=== PATIENT | female | born 1975 | race African-American/Black ===

== ENCOUNTER 2021-12-04 22:01 | Inpatient (IN) | payer OTHER ==
[2021-12-04] MEDS ORDERED: niCARdipine 25 MG/10 ML VIAL ONE (22:20)
[2021-12-04] MEDS ORDERED: Dextrose 5% in Water 1,000 ML IV PRN (23:17)
[2021-12-04] MEDS ORDERED: Acetaminophen 325 MG TAB PO PRN (23:17)
[2021-12-04] MEDS ORDERED: Ondansetron PF 4 MG/2 ML Vial IVP PRN (23:17)
[2021-12-04] MEDS ORDERED: Dextrose 50% Abboject 50 ML SYRINGE SLOW IVP PRN (23:17)
[2021-12-04] MEDS ORDERED: Calcium Carbonate 500 MG ChewTAB PO PRN (23:17)
[2021-12-04] MEDS ORDERED: Guaifenesin DM 100-10/5 ML UDCUP PO PRN (23:17)
[2021-12-04] MEDS ORDERED: Senokot S 8.6-50 MG TAB PO PRN (23:17)
[2021-12-04 23:45] LABS: CKMB 7.3 ng/mL (0-6.6)
[2021-12-04] MEDS ORDERED: Metoprolol Tartrate 5 MG/5 ML VIAL IVP SCH (23:45)
[2021-12-05 00:09] VITALS: BMI 32.1
[2021-12-05 01:22] LABS: INR-International Normal Ratio 1.1; PTT 26.2 sec (22.0-33.0); Prothrombin Time 12.3 sec (9.5-12.1)
[2021-12-05] MEDS: niCARdipine 25 MG in Sodium Chloride 0.9% 250 ML 250 ML IVPB SCH ×3 (01:30→13:24)
[2021-12-05] MEDS ORDERED: Enoxaparin Sodium 80 MG/0.8 ML SYRINGE SC SCH (02:30)
[2021-12-05] MEDS: HYDROcodone/Acetaminophen 5/325 mg Tablet PO PRN (02:43)
[2021-12-05] MEDS ORDERED: Promethazine 25 MG TAB PO SCH (03:15)
[2021-12-05 05:11] LABS: #Monocytes 0.6 10x3/uL (0.0-1.1); #Neutrophils 9.3 10x3/uL (1.5-8.4); %Basophils 0.2 % (0.0-2.0); %Lymphocytes 10.5 % (18.0-47.0); %Monocytes 5.1 % (0.0-10.0); %Neutrophils 83.7 % (40.0-75.0); Hemoglobin 10.5 g/dL (12.0-15.5); Mean Corpuscular HGB CONC 30.2 g/dL (32.0-36.0); Mean Corpuscular Hemoglobin 20.1 pg (27.0-33.0); Mean Corpuscular Volume 66.5 fl (81.6-98.3); Mean Platelet Volume 9.9 fl (7.4-10.4); Platelet Count 421 10x3/uL (150-450); RBC Distribution Width 17.1 % (11.5-14.5); Red Blood Cell (RBC) Count 5.23 10x6/uL (3.90-5.03); White Blood Cell (WBC) Count 11.1 10x3/uL (3.5-10.5)
[2021-12-05 05:20] LABS: INR-International Normal Ratio 1.2; PTT 28.2 sec (22.0-33.0); Prothrombin Time 12.6 sec (9.5-12.1)
[2021-12-05 05:27] LABS: Microcytosis MODERATE=15-30 cells (100X) (0-5/hpf)
[2021-12-05 05:28] LABS: ALT (SGPT) 11 U/L (8-55); AST (SGOT) 25 U/L (5-34); Alkaline Phosphatase 127 U/L (40-110); Anion Gap 18 mmol/L (10-20); BUN (Urea Nitrogen) 16 mg/dL (7.0-18.7); Bilirubin, Total 0.9 mg/dL (0.2-1.2); Calc. Creatinine Clearance 99 mL/min (70-130); Calcium 9.2 mg/dL (7.8-10.44); Carbon Dioxide 24 mmol/L (22-29); Cardiac Risk 3.1 (Less than 4.5); Chloride 101 mmol/L (98-107); Cholesterol 169 mg/dl (< 200 Desired); Globulin 5.6 g/dL (2.4-3.5); Glucose 181 mg/dL (70-105); HDL Cholesterol 55 mg/dL (>60 Neg Risk); Iron 26 ug/dL (50-170); Iron Binding Capacity, Total 370 mcg/dL (265-497); LDL Cholesterol, Calculated 100 mg/dL; Magnesium 1.8 mg/dL (1.6-2.6); Platelet Morphology Comment Appears Adequate; Potassium 3.3 mmol/L (3.5-5.1); Protein, Total 8.6 g/dL (6.0-8.3); Sodium 140 mmol/L (136-145); Triglycerides 69 mg/dL (Less than 150)
[2021-12-05 05:44] LABS: Ferritin 85.6 ng/mL (10-291); Thyroid Stimulating Hormone 0.7231 uIU/mL (0.35-4.94)
[2021-12-05] MEDS ORDERED: Potassium Chloride 20 MEQ TAB PO SCH (06:30)
[2021-12-05] MEDS ORDERED: Carvedilol 6.25 MG TAB PO SCH (08:00)
[2021-12-05] MEDS ORDERED: Lisinopril 20 MG TAB PO SCH (09:00)
[2021-12-05] MEDS ORDERED: Hydrochlorothiazide 25 MG TAB PO SCH (09:00)
[2021-12-05] MEDS ORDERED: Gabapentin 100 MG CAP PO SCH (09:00)
[2021-12-05] MEDS ORDERED: Carvedilol 12.5 MG TAB PO SCH ×2 (10:00→17:00)
[2021-12-05 10:03] LABS: CKMB 6.1 ng/mL (0-6.6)
[2021-12-05] MEDS: Lantus 1000 UNITS/10 ML VIAL SC SCH (10:36)
[2021-12-05] MEDS: Enoxaparin Sodium 80 MG/0.8 ML SYRINGE SC SCH ×2 (10:37→20:35)
[2021-12-05] MEDS: Gabapentin 300 MG CAP PO SCH ×3 (10:37→20:37)
[2021-12-05] MEDS: Lidocaine 5% Patch TD SCH (11:13)
[2021-12-05 13:04] LABS: Hemoglobin A1c 9.2 % (4.0-6.0)
[2021-12-05] MEDS: Atorvastatin Calcium 40 MG TAB PO SCH (20:35)
[2021-12-05] MEDS: TICAGRELOR 90 MG TABLET PO SCH (20:36)
[2021-12-05] MEDS: Promethazine 25 MG TAB PO PRN (20:38)
[2021-12-05] MEDS: Transdermal Patch Removal TOP SCH (20:42)
[2021-12-05] MEDS: tiZANidine HCl 4 MG TAB PO SCH (20:50)
[2021-12-05] MEDS ORDERED: Atorvastatin Calcium 20 MG TAB PO SCH (21:00)
[2021-12-06] MEDS: niCARdipine 25 MG in Sodium Chloride 0.9% 250 ML 250 ML IVPB SCH ×2 (04:33→17:28)
[2021-12-06] MEDS: HumaLOG 300 UNITS/3 ML VIAL SC PRN ×3 (06:13→17:41)
[2021-12-06] MEDS: Spironolactone 25 MG TAB PO SCH ×3 (08:44→10:22)
[2021-12-06] MEDS: Lisinopril 20 MG TAB PO SCH (08:46)
[2021-12-06] MEDS: Gabapentin 300 MG CAP PO SCH ×3 (08:46→20:08)
[2021-12-06] MEDS: Ferrous Sulfate 325 MG TAB PO SCH (08:48)
[2021-12-06] MEDS: Enoxaparin Sodium 80 MG/0.8 ML SYRINGE SC SCH ×2 (08:48→20:09)
[2021-12-06] MEDS: Carvedilol 12.5 MG TAB PO SCH ×2 (08:48→17:27)
[2021-12-06] MEDS ORDERED: NALOXONE HCL SL SCH (09:00)
[2021-12-06] MEDS ORDERED: BUPRENORPHINE HCL SL SCH (09:00)
[2021-12-06] MEDS ORDERED: Lisinopril 20 MG TAB PO SCH (09:00)
[2021-12-06] MEDS ORDERED: [UNRECOGNIZED DRUG - OTHER] SL SCH (09:00)
[2021-12-06] MEDS: Promethazine 25 MG TAB PO PRN ×2 (09:13→20:15)
[2021-12-06] MEDS: tiZANidine HCl 4 MG TAB PO SCH ×4 (09:14→20:10)
[2021-12-06] MEDS: HYDROcodone/Acetaminophen 5/325 mg Tablet PO PRN ×2 (09:26→20:14)
[2021-12-06] MEDS: TICAGRELOR 90 MG TABLET PO SCH ×2 (09:30→20:09)
[2021-12-06 09:40] LABS: Hemoglobin 11.5 g/dL (12.0-15.5); Mean Corpuscular HGB CONC 29.7 g/dL (32.0-36.0); Mean Corpuscular Volume 67.2 fl (81.6-98.3); Mean Platelet Volume 9.4 fl (7.4-10.4); Platelet Count 446 10x3/uL (150-450); RBC Distribution Width 18.1 % (11.5-14.5); Red Blood Cell (RBC) Count 5.76 10x6/uL (3.90-5.03); White Blood Cell (WBC) Count 5.1 10x3/uL (3.5-10.5)
[2021-12-06 09:53] LABS: Anion Gap 13 mmol/L (10-20); BUN (Urea Nitrogen) 17 mg/dL (7.0-18.7); Calc. Creatinine Clearance 98 mL/min (70-130); Carbon Dioxide 26 mmol/L (22-29); Chloride 98 mmol/L (98-107); Glucose 179 mg/dL (70-105); Magnesium 1.7 mg/dL (1.6-2.6); Potassium 3.6 mmol/L (3.5-5.1); Sodium 133 mmol/L (136-145)
[2021-12-06] MEDS: Lantus 1000 UNITS/10 ML VIAL SC SCH (10:39)
[2021-12-06] MEDS: Lidocaine 5% Patch TD SCH ×2 (10:51→10:55)
[2021-12-06 12:17] VITALS: TEMP 98.7
[2021-12-06] MEDS ORDERED: Magnesium 2 GM/50 ML(in water) 2 GM in Premix Bag 1 BAG IVPB SCH ×2 (12:45→18:00)
[2021-12-06 15:42] LABS: Bilirubin Neg (Negative); Blood, Urine Negative (Negative); Clarity Clear (Clear); Glucose, Urine (Dipstick) Normal (Negative); Ketone, Urine Negative (Negative); Leukocyte Negative (Negative); Nitrite Negative (Negative); Protein, Urine (Dipstick) 100 mg/dl (Neg-Trace); Urobilinogen Normal mg/dL (Less than 2)
[2021-12-06 15:50] LABS: Urine Culture Reflex No No
[2021-12-06 16:03] LABS: Bacteria/HPF 2+ HPF (None Seen); RBC/HPF 0-3 HPF (0-3); WBC/HPF 0-3 HPF (0-3)
[2021-12-06] MEDS: Atorvastatin Calcium 40 MG TAB PO SCH (20:09)
[2021-12-06] MEDS: Transdermal Patch Removal TOP SCH (20:10)
[2021-12-07] MEDS: niCARdipine 25 MG in Sodium Chloride 0.9% 250 ML 250 ML IVPB SCH (00:07)
[2021-12-07 04:49] LABS: Anion Gap 14 mmol/L (10-20); BUN (Urea Nitrogen) 23 mg/dL (7.0-18.7); Calc. Creatinine Clearance 76 mL/min (70-130); Calcium 8.5 mg/dL (7.8-10.44); Carbon Dioxide 25 mmol/L (22-29); Chloride 98 mmol/L (98-107); Glucose 167 mg/dL (70-105); Potassium 3.5 mmol/L (3.5-5.1); Sodium 133 mmol/L (136-145)
[2021-12-07] MEDS: Enoxaparin Sodium 80 MG/0.8 ML SYRINGE SC SCH (08:01)
[2021-12-07] MEDS: Lantus 1000 UNITS/10 ML VIAL SC SCH (08:01)
[2021-12-07] MEDS: Promethazine 25 MG TAB PO PRN ×2 (08:02→20:48)
[2021-12-07] MEDS: TICAGRELOR 90 MG TABLET PO SCH ×2 (08:02→20:47)
[2021-12-07] MEDS: tiZANidine HCl 4 MG TAB PO SCH ×4 (08:02→21:16)
[2021-12-07] MEDS: Gabapentin 300 MG CAP PO SCH ×3 (08:02→20:46)
[2021-12-07 08:03] VITALS: BP 178/99
[2021-12-07] MEDS: Spironolactone 25 MG TAB PO SCH (08:03)
[2021-12-07] MEDS: Lisinopril 20 MG TAB PO SCH (08:03)
[2021-12-07] MEDS: Carvedilol 12.5 MG TAB PO SCH ×2 (08:03→17:01)
[2021-12-07] MEDS: Ferrous Sulfate 325 MG TAB PO SCH (08:03)
[2021-12-07] MEDS: HYDROcodone/Acetaminophen 5/325 mg Tablet PO PRN ×3 (08:17→20:47)
[2021-12-07] MEDS ORDERED: Potassium Chloride 20 MEQ TAB PO SCH (11:00)
[2021-12-07] MEDS: Lidocaine 5% Patch TD SCH (11:17)
[2021-12-07] MEDS: HumaLOG 300 UNITS/3 ML VIAL SC PRN ×2 (12:26→17:02)
[2021-12-07] MEDS: Atorvastatin Calcium 40 MG TAB PO SCH (20:48)
[2021-12-08] MEDS: HYDROcodone/Acetaminophen 5/325 mg Tablet PO PRN ×3 (02:07→12:25)
[2021-12-08] MEDS: Transdermal Patch Removal TOP SCH ×2 (02:07→22:56)
[2021-12-08] MEDS ORDERED: Sodium Chloride 0.9% 250 ML 250 ML ONE (03:02)
[2021-12-08] MEDS ORDERED: niCARdipine 25 MG/10 ML VIAL ONE (03:02)
[2021-12-08 04:31] LABS: Hemoglobin 11.4 g/dL (12.0-15.5); Mean Corpuscular HGB CONC 30.3 g/dL (32.0-36.0); Mean Corpuscular Hemoglobin 20.1 pg (27.0-33.0); Mean Corpuscular Volume 66.4 fl (81.6-98.3); Mean Platelet Volume 9.5 fl (7.4-10.4); Platelet Count 352 10x3/uL (150-450); RBC Distribution Width 17.8 % (11.5-14.5); Red Blood Cell (RBC) Count 5.66 10x6/uL (3.90-5.03); White Blood Cell (WBC) Count 4.7 10x3/uL (3.5-10.5)
[2021-12-08] MEDS ORDERED: Morphine 2 MG/ML VIAL SLOW IVP SCH ×2 (05:30→21:15)
[2021-12-08] MEDS: niCARdipine 25 MG in Sodium Chloride 0.9% 250 ML 250 ML IVPB SCH ×3 (06:20→18:24)
[2021-12-08] MEDS: Gabapentin 300 MG CAP PO SCH ×3 (07:33→21:04)
[2021-12-08] MEDS: Carvedilol 12.5 MG TAB PO SCH ×2 (07:33→18:25)
[2021-12-08] MEDS: Lisinopril 20 MG TAB PO SCH (07:33)
[2021-12-08] MEDS: Promethazine 25 MG TAB PO PRN (07:34)
[2021-12-08] MEDS: Ferrous Sulfate 325 MG TAB PO SCH (07:34)
[2021-12-08] MEDS: tiZANidine HCl 4 MG TAB PO SCH ×4 (07:34→21:09)
[2021-12-08] MEDS: TICAGRELOR 90 MG TABLET PO SCH ×2 (07:34→21:59)
[2021-12-08] MEDS: Spironolactone 25 MG TAB PO SCH (07:34)
[2021-12-08] MEDS: Lantus 1000 UNITS/10 ML VIAL SC SCH (07:35)
[2021-12-08 08:49] LABS: Anion Gap 12 mmol/L (10-20); BUN (Urea Nitrogen) 22 mg/dL (7.0-18.7); Calc. Creatinine Clearance 78 mL/min (70-130); Calcium 8.5 mg/dL (7.8-10.44); Carbon Dioxide 26 mmol/L (22-29); Chloride 100 mmol/L (98-107); Glucose 237 mg/dL (70-105); Potassium 3.5 mmol/L (3.5-5.1); Sodium 134 mmol/L (136-145)
[2021-12-08] MEDS ORDERED: Heparin 10,000 UNITS/ 10 ML VIAL ONE ×2 (09:45→15:57)
[2021-12-08] MEDS ORDERED: Nitroglycerin 50 MG/250 ML BOT 0 ML ONE ×2 (09:45→15:57)
[2021-12-08] MEDS ORDERED: Adenosine 6 MG/2 ML VIAL ONE ×2 (09:45→15:57)
[2021-12-08] MEDS ORDERED: Potassium Chloride 20 MEQ TAB PO SCH (12:30)
[2021-12-08] MEDS ORDERED: Iopamidol 300 61% 100 ML VIAL FS ONE (14:07)
[2021-12-08] MEDS ORDERED: Iopamidol 300 61% 50 ML VIAL FS ONE (14:07)
[2021-12-08] MEDS: Lidocaine 5% Patch TD SCH (15:25)
[2021-12-08] MEDS ORDERED: Lidocaine 1% (PF) 30 ML VIAL ONE (15:57)
[2021-12-08] MEDS ORDERED: Fentanyl 100 MCG/2 ML VIAL ONE (16:45)
[2021-12-08] MEDS ORDERED: Midazolam HCl 2 mg/2 ml Vial ONE (16:46)
[2021-12-08] MEDS: HumaLOG 300 UNITS/3 ML VIAL SC PRN (18:29)
[2021-12-08] MEDS ORDERED: Enoxaparin Sodium 80 MG/0.8 ML SYRINGE SC SCH (21:00)
[2021-12-08] MEDS: hydrOXYzine 25 MG TAB PO PRN (21:03)
[2021-12-08] MEDS: Atorvastatin Calcium 40 MG TAB PO SCH (21:05)
[2021-12-09] MEDS: HumaLOG 300 UNITS/3 ML VIAL SC PRN (01:12)
[2021-12-09] MEDS: HYDROcodone/Acetaminophen 5/325 mg Tablet PO PRN ×2 (03:48→08:05)
[2021-12-09 04:29] LABS: Hemoglobin 10.7 g/dL (12.0-15.5); Mean Corpuscular HGB CONC 30.1 g/dL (32.0-36.0); Mean Corpuscular Hemoglobin 20.2 pg (27.0-33.0); Mean Corpuscular Volume 67.2 fl (81.6-98.3); Mean Platelet Volume 9.8 fl (7.4-10.4); Platelet Count 298 10x3/uL (150-450); RBC Distribution Width 17.2 % (11.5-14.5); White Blood Cell (WBC) Count 7.4 10x3/uL (3.5-10.5)
[2021-12-09 04:39] LABS: Anion Gap 13 mmol/L (10-20); BUN (Urea Nitrogen) 16 mg/dL (7.0-18.7); Calc. Creatinine Clearance 93 mL/min (70-130); Calcium 8.7 mg/dL (7.8-10.44); Carbon Dioxide 23 mmol/L (22-29); Chloride 106 mmol/L (98-107); Glucose 203 mg/dL (70-105); Potassium 4.1 mmol/L (3.5-5.1); Sodium 138 mmol/L (136-145)
[2021-12-09] MEDS: Lantus 1000 UNITS/10 ML VIAL SC SCH (07:55)
[2021-12-09] MEDS: Carvedilol 12.5 MG TAB PO SCH (08:04)
[2021-12-09] MEDS: TICAGRELOR 90 MG TABLET PO SCH (08:04)
[2021-12-09] MEDS: Lisinopril 20 MG TAB PO SCH (08:04)
[2021-12-09] MEDS: Gabapentin 300 MG CAP PO SCH ×2 (08:04→14:01)
[2021-12-09] MEDS: tiZANidine HCl 4 MG TAB PO SCH ×2 (08:04→12:34)
[2021-12-09] MEDS: Spironolactone 25 MG TAB PO SCH (08:05)
[2021-12-09] MEDS: Ferrous Sulfate 325 MG TAB PO SCH (08:05)
[2021-12-09] MEDS: hydrOXYzine 25 MG TAB PO PRN (08:06)
[2021-12-09] MEDS: Lidocaine 5% Patch TD SCH (08:07)
[2021-12-09] MEDS: niCARdipine 25 MG in Sodium Chloride 0.9% 250 ML 250 ML IVPB SCH (12:38)
[2021-12-09] MEDS ORDERED: Amlodipine 10 MG TAB PO SCH (14:00)
[2021-12-09] MEDS ORDERED: Lisinopril 20 MG TAB PO SCH (21:00)
[2021-12-10] MEDS ORDERED: Amlodipine 10 MG TAB PO SCH (09:00)
[2021-12-12 21:36] LABS: Metanephrine,Plasma 148.3 pg/mL (0.0-88.0); Normetanephrine,Pl 544.8 pg/mL (0.0-218.9)
== END 2021-12-09 15:58 | disposition home or self-care (01) | DRG 246 ==
LOC: CSHERS 22:01 → CSHIMCU 23:48
PROVIDERS: ADMIT Student in an Organized Health Care Education/Training Program; ATTEND Internal Medicine
PROC: 027135Z Dilation of Coronary Artery, Two Arteries with Two Drug-eluting Intraluminal Devices, Percutaneous Approach (ICD-10-PCS; principal; 2021-12-08)
PROC: 4A023N7 Measurement of Cardiac Sampling and Pressure, Left Heart, Percutaneous Approach (ICD-10-PCS; 2021-12-08)
PROC: B2111ZZ Fluoroscopy of Multiple Coronary Arteries using Low Osmolar Contrast (ICD-10-PCS; 2021-12-08)
DX: I16.1 Hypertensive emergency (principal); I21.A1 Myocardial infarction type 2; E78.2 Mixed hyperlipidemia; I13.10 Hypertensive heart and chronic kidney disease without heart failure, with stage 1 through stage 4 chronic kidney disease, or unspecified chronic kidney disease; N18.2 Chronic kidney disease, stage 2 (mild); E11.65 Type 2 diabetes mellitus with hyperglycemia; G89.29 Other chronic pain; D50.9 Iron deficiency anemia, unspecified; E11.22 Type 2 diabetes mellitus with diabetic chronic kidney disease; F31.9 Bipolar disorder, unspecified; R11.2 Nausea with vomiting, unspecified; M79.89 Other specified soft tissue disorders; I25.118 Atherosclerotic heart disease of native coronary artery with other forms of angina pectoris; Z79.4 Long term (current) use of insulin; Z90.710 Acquired absence of both cervix and uterus; Z90.49 Acquired absence of other specified parts of digestive tract; Z88.8 Allergy status to other drugs, medicaments and biological substances; Z91.14 Patient's other noncompliance with medication regimen
CPT/HCPCS: 36245; 36252; 36415; 36416; 76770; 80048; 80053; 80061; 81001; 82553; 82728; 83036; 83540; 83550; 83735; 83835; 83880; 84443; 84484; 85025; 85027; 87086; 92928; 92978; 92979; 93005; 93010; 93306; 93454; 93970; 96365; 96366; 97139; 99152; 99153; C1725; C1753; C1760; C1769; C1874; C1887; C9600; J0153; J1644; J1650; J1815; J2001; J2250; J2270; J3010; J3475; J7050; Q0169; Q9967

== ENCOUNTER 2022-01-05 08:45 | Outpatient (CLI) | payer OTHER | END 2022-01-05 08:46 | disposition home or self-care (01) | LOC: CSHWCC 08:45 | PROVIDERS: ATTEND Nurse Practitioner Family | DX: T81.89XD Other complications of procedures, not elsewhere classified, subsequent encounter (principal) | CPT/HCPCS: 97605; 99203; G0463 ==

== ENCOUNTER 2022-01-09 15:17 | Outpatient (CLI) | payer OTHER | END 2022-01-09 15:18 | disposition home or self-care (01) | LOC: CSHWCC 15:17 | PROVIDERS: ATTEND Nurse Practitioner Family | DX: T81.89XD Other complications of procedures, not elsewhere classified, subsequent encounter (principal) | CPT/HCPCS: 97605 ==

== ENCOUNTER 2022-01-12 08:40 | Outpatient (CLI) | payer OTHER | END 2022-01-12 08:41 | disposition home or self-care (01) | LOC: CSHWCC 08:40 | PROVIDERS: ATTEND Nurse Practitioner Family | DX: T81.89XD Other complications of procedures, not elsewhere classified, subsequent encounter (principal) | CPT/HCPCS: 97605; 99212; G0463 ==

== ENCOUNTER 2022-01-25 15:19 | Outpatient (CLI) | payer OTHER | END 2022-01-25 15:20 | disposition home or self-care (01) | LOC: CSHWCC 15:19 | PROVIDERS: ATTEND Nurse Practitioner Family | DX: T87.89 Other complications of amputation stump (principal); Z89.412 Acquired absence of left great toe; Z89.422 Acquired absence of other left toe(s) | CPT/HCPCS: 36416; 99211; G0463 ==

== ENCOUNTER 2022-01-25 16:33 | Emergency (ER) | payer OTHER ==
[2022-01-25 17:45] LABS: Bilirubin Neg (Negative); Blood, Urine 10 (Negative); Clarity Clear (Clear); Glucose, Urine (Dipstick) 100 mg/dL (Negative); Ketone, Urine Negative (Negative); Leukocyte Negative (Negative); Nitrite Negative (Negative); Protein, Urine (Dipstick) 500 mg/dl (Neg-Trace); Urobilinogen Normal mg/dL (Less than 2)
== END 2022-01-25 18:48 | disposition home or self-care (01) ==
LOC: CSHERS 16:33
DX: G47.10 Hypersomnia, unspecified (principal); T42.6X5A Adverse effect of other antiepileptic and sedative-hypnotic drugs, initial encounter; E11.9 Type 2 diabetes mellitus without complications; I10 Essential (primary) hypertension; T87.89 Other complications of amputation stump; Z89.412 Acquired absence of left great toe; Z89.422 Acquired absence of other left toe(s)
CPT/HCPCS: 36416; 99211; 99283; G0463

== ENCOUNTER 2022-01-29 09:59 | Outpatient (CLI) | payer OTHER | END 2022-01-29 10:00 | disposition home or self-care (01) | LOC: CSHWCC 09:59 | PROVIDERS: ATTEND Nurse Practitioner Family | DX: T81.89XD Other complications of procedures, not elsewhere classified, subsequent encounter (principal) | CPT/HCPCS: 11042; 97605 ==

== ENCOUNTER 2022-02-06 10:00 | Outpatient (CLI) | payer OTHER | END 2022-02-06 10:01 | disposition home or self-care (01) | LOC: CSHWCC 10:00 | PROVIDERS: ATTEND Nurse Practitioner Family | DX: T87.89 Other complications of amputation stump (principal); Z89.412 Acquired absence of left great toe; Z89.422 Acquired absence of other left toe(s) | CPT/HCPCS: 99213; G0463 ==

== ENCOUNTER 2022-02-09 10:17 | Outpatient (CLI) | payer OTHER | END 2022-02-09 10:18 | disposition home or self-care (01) | LOC: CSHWCC 10:17 | PROVIDERS: ATTEND Nurse Practitioner Family | DX: T87.89 Other complications of amputation stump (principal); Z89.422 Acquired absence of other left toe(s) ==

== ENCOUNTER 2022-08-21 17:21 | Emergency (ER) | payer OTHER ==
[2022-08-21] MEDS ORDERED: HYDROcodone/Acetaminophen 10/325 mg Tablet ONE (18:34)
== END 2022-08-21 18:45 | disposition home or self-care (01) ==
LOC: CSHERS 17:21
DX: S98.111D Complete traumatic amputation of right great toe, subsequent encounter (principal); X58.XXXD Exposure to other specified factors, subsequent encounter
CPT/HCPCS: 99282

== ENCOUNTER 2022-08-27 09:18 | Outpatient (CLI) | payer OTHER | END 2022-08-27 09:19 | disposition home or self-care (01) | LOC: CSHWCC 09:18 | PROVIDERS: ATTEND Nurse Practitioner Family | DX: T81.89XD Other complications of procedures, not elsewhere classified, subsequent encounter (principal) ==

== ENCOUNTER 2022-08-29 13:03 | Outpatient (CLI) | payer OTHER | END 2022-08-29 13:04 | disposition home or self-care (01) | LOC: CSHWCC 13:03 | PROVIDERS: ATTEND Nurse Practitioner Family | DX: T81.89XD Other complications of procedures, not elsewhere classified, subsequent encounter (principal) ==

== ENCOUNTER 2022-09-10 08:28 | Outpatient (CLI) | payer OTHER | END 2022-09-10 08:29 | disposition home or self-care (01) | LOC: CSHWCC 08:28 | PROVIDERS: ATTEND Nurse Practitioner Family | DX: T81.89XD Other complications of procedures, not elsewhere classified, subsequent encounter (principal); Z89.411 Acquired absence of right great toe ==

== ENCOUNTER 2022-09-26 11:23 | Outpatient (CLI) | payer OTHER | END 2022-09-26 11:24 | disposition home or self-care (01) | LOC: CSHWCC 11:23 | PROVIDERS: ATTEND Nurse Practitioner Family | DX: T81.89XD Other complications of procedures, not elsewhere classified, subsequent encounter (principal); Z89.411 Acquired absence of right great toe ==

== ENCOUNTER 2022-09-30 10:01 | Emergency (ER) | payer OTHER ==
[2022-09-30] MEDS ORDERED: oxyCODONE 5 MG TAB ONE (11:40)
[2022-09-30] MEDS ORDERED: Acetaminophen 325 MG TAB ONE (11:40)
== END 2022-09-30 13:25 | disposition home or self-care (01) ==
LOC: CSHERS 10:01
DX: E11.621 Type 2 diabetes mellitus with foot ulcer (principal); Z79.4 Long term (current) use of insulin; I25.10 Atherosclerotic heart disease of native coronary artery without angina pectoris; E11.22 Type 2 diabetes mellitus with diabetic chronic kidney disease; I12.0 Hypertensive chronic kidney disease with stage 5 chronic kidney disease or end stage renal disease; N18.6 End stage renal disease

== ENCOUNTER 2022-10-04 10:25 | Outpatient (CLI) | payer OTHER | END 2022-10-04 10:26 | disposition home or self-care (01) | LOC: CSHWCC 10:25 | PROVIDERS: ATTEND Nurse Practitioner Family | DX: T81.89XD Other complications of procedures, not elsewhere classified, subsequent encounter (principal); Z89.411 Acquired absence of right great toe | CPT/HCPCS: 99212; G0463 ==

== ENCOUNTER 2022-10-25 08:17 | Emergency (ER) | payer OTHER ==
[2022-10-25] MEDS ORDERED: Furosemide 100 MG/10 ML VIAL ONE (09:03)
[2022-10-25] MEDS ORDERED: HYDROcodone/Acetaminophen 5/325 mg Tablet ONE (09:04)
[2022-10-25 09:11] LABS: #Eosinphils 0.1 10x3/uL (0.0-0.5); #Monocytes 0.6 10x3/uL (0.0-1.1); #Neutrophils 2.6 10x3/uL (1.5-8.4); %Basophils 0.8 % (0.0-2.0); %Eosinophils 2.1 % (0.0-6.0); %Monocytes 11.1 % (0.0-10.0); %Neutrophils 49.8 % (40.0-75.0); Mean Corpuscular HGB CONC 29.6 g/dL (32.0-36.0); Mean Corpuscular Volume 77.6 fl (81.6-98.3); Mean Platelet Volume 10.1 fl (7.4-10.4); Platelet Count 297 10x3/uL (150-450); RBC Distribution Width 18.6 % (11.5-14.5); Red Blood Cell (RBC) Count 5.22 10x6/uL (3.90-5.03); White Blood Cell (WBC) Count 5.1 10x3/uL (3.5-10.5)
[2022-10-25 09:14] LABS: Chloride 104 mmol/L (98-107); Potassium 4.1 mmol/L (3.5-5.1); Sodium 135 mmol/L (136-145)
[2022-10-25 09:15] LABS: Bilirubin Neg (Negative); Blood, Urine 10 (Negative); Clarity Clear (Clear); Glucose, Urine (Dipstick) 100 mg/dL (Negative); Ketone, Urine Negative (Negative); Leukocyte 100 (Negative); Nitrite Negative (Negative); Protein, Urine (Dipstick) 100 mg/dl (Neg-Trace); Specific Gravity, Urine 1.005 (1.005-1.030); Urobilinogen Normal mg/dL (Less than 2)
[2022-10-25 09:23] LABS: Actual Bicarbonate (HCO3v) 24 mEq/L (22-28); Base Excess -0.2 mEq/L (-2 - +2); Calcium, Ionized (venous) 1.01 mmol/L (1.16-1.32); Chloride (VBG) 101 mmol/L (98-106); Hemoglobin (Hb) 13.7 g/dL (11.7-16.0); Puncture Site Other Site; RapidComm Collect By CBN; Sodium 136.1 mmol/L (133-146); pH (venous) 7.44 (7.32-7.43)
[2022-10-25] MEDS ORDERED: Dextrose 50% Abboject 50 ML SYRINGE ONE (09:24)
[2022-10-25 09:25] LABS: Bacteria/HPF Rare-Few HPF (None Seen); RBC/HPF 0-3 HPF (0-3); Squamous Epithelial 0-3 HPF (0-3); WBC/HPF 0-3 HPF (0-3)
[2022-10-25 09:26] LABS: ALT (SGPT) 36 U/L (8-55); AST (SGOT) 45 U/L (5-34); Albumin 3.6 g/dL (3.5-5.0); Alkaline Phosphatase 157 U/L (40-110); BUN (Urea Nitrogen) 21 mg/dL (7.0-18.7); Bilirubin, Total 1.3 mg/dL (0.2-1.2); Calc. Creatinine Clearance 0 mL/min (70-130); Calcium 8.8 mg/dL (7.8-10.44); Carbon Dioxide 19 mmol/L (22-29); Estimated GFR 54; Globulin 4.2 g/dL (2.4-3.5); Glucose 58 mg/dL (70-105); Protein, Total 7.8 g/dL (6.0-8.3)
[2022-10-25 09:36] LABS: Anion Gap 16 mmol/L (10-20)
[2022-10-25] MEDS ORDERED: cloNIDine 0.1 MG TAB ONE (09:45)
[2022-10-25] MEDS ORDERED: Morphine 4 MG/ML VIAL ONE (11:48)
== END 2022-10-25 12:45 | disposition home or self-care (01) ==
LOC: CSHERS 08:17
DX: R60.0 Localized edema (principal); I25.10 Atherosclerotic heart disease of native coronary artery without angina pectoris; I12.0 Hypertensive chronic kidney disease with stage 5 chronic kidney disease or end stage renal disease; E11.22 Type 2 diabetes mellitus with diabetic chronic kidney disease; N18.6 End stage renal disease
CPT/HCPCS: 36415; 36416; 71045; 80053; 81003; 81015; 82805; 83735; 83880; 84484; 85025; 93005; 93970; 96374; 96375; J1940; J2270; J7999

== ENCOUNTER 2022-11-23 10:04 | Inpatient (IN) | payer OTHER ==
[2022-11-23 10:48] LABS: #Eosinphils 0.1 10x3/uL (0.0-0.5); #Monocytes 0.5 10x3/uL (0.0-1.1); #Neutrophils 1.9 10x3/uL (1.5-8.4); %Basophils 0.8 % (0.0-2.0); %Eosinophils 1.8 % (0.0-6.0); %Lymphocytes 35.9 % (18.0-47.0); %Monocytes 13.6 % (0.0-10.0); %Neutrophils 47.6 % (40.0-75.0); Hemoglobin 11.9 g/dL (12.0-15.5); Mean Corpuscular HGB CONC 30.1 g/dL (32.0-36.0); Mean Corpuscular Hemoglobin 22.5 pg (27.0-33.0); Mean Corpuscular Volume 74.5 fl (81.6-98.3); Mean Platelet Volume 10.5 fl (7.4-10.4); Platelet Count 185 10x3/uL (150-450); RBC Distribution Width 18.1 % (11.5-14.5); White Blood Cell (WBC) Count 3.9 10x3/uL (3.5-10.5)
[2022-11-23 10:51] LABS: ALT (SGPT) 14 U/L (8-55); AST (SGOT) 24 U/L (5-34); Albumin 3.1 g/dL (3.5-5.0); Alkaline Phosphatase 178 U/L (40-110); Anion Gap 12 mmol/L (10-20); BUN (Urea Nitrogen) 17 mg/dL (7.0-18.7); Bilirubin, Total 1.2 mg/dL (0.2-1.2); Calc. Creatinine Clearance 0 mL/min (70-130); Calcium 8.9 mg/dL (7.8-10.44); Carbon Dioxide 27 mmol/L (22-29); Chloride 98 mmol/L (98-107); Estimated GFR 59; Globulin 4.7 g/dL (2.4-3.5); Glucose 287 mg/dL (70-105); Potassium 3.3 mmol/L (3.5-5.1); Protein, Total 7.8 g/dL (6.0-8.3); Sodium 134 mmol/L (136-145)
[2022-11-23 11:04] LABS: Large Platelets SLIGHT; Platelet Morphology Comment Appears Adequate; Small Platelets MODERATE
[2022-11-23] MEDS ORDERED: Furosemide 40 MG/4 ML VIAL ONE (11:40)
[2022-11-23] MEDS ORDERED: hydrALAZINE 25 MG TAB ONE (11:41)
[2022-11-23] MEDS ORDERED: hydrALAZINE 20 MG/ML VIAL ONE (11:41)
[2022-11-23] MEDS ORDERED: Acetaminophen 500 MG TAB ONE (11:46)
[2022-11-23 12:29] LABS: CKMB 3.9 ng/mL (0-6.6)
[2022-11-23] MEDS ORDERED: Senokot S 8.6-50 MG TAB PO PRN (12:54)
[2022-11-23] MEDS ORDERED: Dextrose 5% in Water 1,000 ML IV PRN (12:55)
[2022-11-23] MEDS ORDERED: Dextrose 50% Abboject 50 ML SYRINGE SLOW IVP PRN (12:55)
[2022-11-23] MEDS ORDERED: Insulin Regular 300 UNITS/3 ML VIAL SC PRN (12:55)
[2022-11-23] MEDS ORDERED: Potassium Chloride 20 MEQ TAB PO SCH (13:15)
[2022-11-23] MEDS: Gabapentin 300 MG CAP PO SCH ×2 (14:36→21:22)
[2022-11-23] MEDS: Furosemide 40 MG/4 ML VIAL SLOW IVP SCH (14:38)
[2022-11-23] MEDS: Morphine 2 MG/ML VIAL SLOW IVP PRN ×2 (14:40→21:19)
[2022-11-23 15:19] LABS: Troponin I 0.042 ng/mL (< 0.028)
[2022-11-23 15:29] VITALS: BMI 34.4
[2022-11-23] MEDS ORDERED: tiZANidine HCl 4 MG TAB PO SCH ×2 (17:00→21:00)
[2022-11-23] MEDS ORDERED: Morphine 2 MG/ML VIAL SLOW IVP SCH (17:00)
[2022-11-23] MEDS ORDERED: Insulin Regular 300 UNITS/3 ML VIAL ONE (17:07)
[2022-11-23] MEDS: Insulin Regular 300 UNITS/3 ML VIAL SC PRN ×2 (17:08→21:25)
[2022-11-23] MEDS: Carvedilol 12.5 MG TAB PO SCH (17:11)
[2022-11-23 18:41] LABS: Troponin I 0.041 ng/mL (< 0.028)
[2022-11-23] MEDS ORDERED: BUPRENORPHINE HCL SL SCH (21:00)
[2022-11-23] MEDS ORDERED: [UNRECOGNIZED DRUG - OTHER] SL SCH (21:00)
[2022-11-23] MEDS ORDERED: NALOXONE HCL SL SCH (21:00)
[2022-11-24] MEDS: Morphine 2 MG/ML VIAL SLOW IVP PRN ×4 (00:38→15:02)
[2022-11-24] MEDS ORDERED: tiZANidine HCl 4 MG TAB PO SCH ×2 (03:00→09:00)
[2022-11-24 05:01] LABS: Hemoglobin 11.6 g/dL (12.0-15.5); Mean Corpuscular HGB CONC 30.6 g/dL (32.0-36.0); Mean Corpuscular Hemoglobin 22.7 pg (27.0-33.0); Mean Corpuscular Volume 74.3 fl (81.6-98.3); Mean Platelet Volume 9.8 fl (7.4-10.4); Platelet Count 180 10x3/uL (150-450); RBC Distribution Width 17.8 % (11.5-14.5); White Blood Cell (WBC) Count 3.2 10x3/uL (3.5-10.5)
[2022-11-24 05:02] LABS: MDiff Complete? YES
[2022-11-24 05:05] LABS: Anion Gap 14 mmol/L (10-20); BUN (Urea Nitrogen) 16 mg/dL (7.0-18.7); Calc. Creatinine Clearance 99 mL/min (70-130); Calcium 8.8 mg/dL (7.8-10.44); Carbon Dioxide 26 mmol/L (22-29); Chloride 101 mmol/L (98-107); Estimated GFR 67; Glucose 132 mg/dL (70-105); Potassium 3.4 mmol/L (3.5-5.1); Sodium 138 mmol/L (136-145)
[2022-11-24 05:36] LABS: Band 2 % (5-11); Eosinophils 2 % (0-10); Lymphocytes 45 % (21-51); Monocytes 17 % (0-10); Neutrophil 34 % (42-75)
[2022-11-24 05:38] LABS: Hypochromia MODERATE=16-30 cells (100X) (0-5/hpf); Platelet Morphology Comment Appears Adequate
[2022-11-24 05:39] LABS: Microcytosis SLIGHT = 6-15 cells (100X) (0-5/hpf)
[2022-11-24] MEDS: Furosemide 40 MG/4 ML VIAL SLOW IVP SCH ×2 (06:46→15:02)
[2022-11-24] MEDS ORDERED: Potassium Chloride 20 MEQ TAB PO SCH (08:00)
[2022-11-24] MEDS: Gabapentin 300 MG CAP PO SCH ×3 (09:38→21:45)
[2022-11-24] MEDS: Carvedilol 12.5 MG TAB PO SCH ×2 (09:39→17:10)
[2022-11-24] MEDS: Empagliflozin 10 MG TAB PO SCH (09:39)
[2022-11-24] MEDS: Ferrous Sulfate 325 MG TAB PO SCH (09:39)
[2022-11-24] MEDS ORDERED: Promethazine 25 MG TAB PO PRN (09:40)
[2022-11-24] MEDS: cloNIDine 0.1 MG TAB PO SCH ×2 (15:02→21:46)
[2022-11-24 15:31] LABS: Bilirubin Neg (Negative); Blood, Urine 10 (Negative); Clarity Clear (Clear); Glucose, Urine (Dipstick) >=1000 mg/dL (Negative); Ketone, Urine Negative (Negative); Leukocyte Negative (Negative); Nitrite Negative (Negative); Protein, Urine (Dipstick) 100 mg/dl (Neg-Trace); Urobilinogen Normal mg/dL (Less than 2)
[2022-11-24 15:40] LABS: Amphetamine Not Detected (NotDetected); Barbiturates Screen Not Detected (NotDetected); Benzodiazepine Screen Not Detected (NotDetected); Cocaine Metabolite Screen Not Detected (NotDetected); Methadone Not Detected (NotDetected); Methamphetamine Not Detected (NotDetected); Opiate Screen Detected (NotDetected); Oxycodone Screen Not Detected (NotDetected); Phencyclidine (PCP) Not Detected (NotDetected); THC/Cannabinoid Screen Not Detected (NotDetected); Tricyclic Screen Not Detected (NotDetected)
[2022-11-24 15:41] LABS: RBC/HPF None Seen HPF (0-3)
[2022-11-24 15:42] LABS: Bacteria/HPF 2+ HPF (None Seen); WBC/HPF None Seen HPF (0-3)
[2022-11-24] MEDS: tiZANidine HCl 4 MG TAB PO SCH ×2 (17:10→21:47)
[2022-11-25] MEDS: Morphine 2 MG/ML VIAL SLOW IVP PRN ×2 (04:10→09:06)
[2022-11-25 04:53] VITALS: TEMP 97.9
[2022-11-25 05:40] LABS: Anion Gap 14 mmol/L (10-20); BUN (Urea Nitrogen) 24 mg/dL (7.0-18.7); Calc. Creatinine Clearance 76 mL/min (70-130); Calcium 9.1 mg/dL (7.8-10.44); Carbon Dioxide 28 mmol/L (22-29); Chloride 102 mmol/L (98-107); Estimated GFR 48; Glucose 235 mg/dL (70-105); Potassium 3.3 mmol/L (3.5-5.1); Sodium 141 mmol/L (136-145)
[2022-11-25] MEDS: Furosemide 40 MG/4 ML VIAL SLOW IVP SCH (06:09)
[2022-11-25] MEDS: Acetaminophen 325 MG TAB PO PRN ×2 (06:13→13:00)
[2022-11-25] MEDS: Insulin Regular 300 UNITS/3 ML VIAL SC PRN ×2 (06:15→11:36)
[2022-11-25] MEDS: Ferrous Sulfate 325 MG TAB PO SCH (09:06)
[2022-11-25] MEDS: Empagliflozin 10 MG TAB PO SCH (09:06)
[2022-11-25] MEDS: Gabapentin 300 MG CAP PO SCH ×2 (09:06→12:59)
[2022-11-25] MEDS: Carvedilol 12.5 MG TAB PO SCH (09:07)
[2022-11-25] MEDS: cloNIDine 0.1 MG TAB PO SCH ×2 (09:07→13:00)
[2022-11-25] MEDS: tiZANidine HCl 4 MG TAB PO SCH ×2 (09:07→12:59)
[2022-11-25 09:08] VITALS: BP 133/64
[2022-11-25] MEDS: Potassium Chloride 20 MEQ TAB PO SCH ×2 (09:55→13:00)
[2022-11-25] MEDS ORDERED: NIFEdipine XL 30 MG TAB PO SCH (10:45)
[2022-11-25] MEDS ORDERED: Albumin 25% 25 GM/100 ML BOT IVPB SCH (12:00)
[2022-11-25 23:19] LABS: Creatinine, Urine 169.68 mg/dL (47-110)
[2022-11-25 23:45] LABS: 24 Hr Creatinine 1696.8 mg/24 hr (710-1650)
[2022-11-26] MEDS ORDERED: NIFEdipine XL 30 MG TAB PO SCH (09:00)
== END 2022-11-25 14:19 | disposition home or self-care (01) | DRG 291 ==
LOC: CSHERS 10:04 → CSHTELE 14:07 → OBSVTOIN 11-25 10:35
PROVIDERS: ADMIT Family Medicine; ATTEND Family Medicine
PROC: 30233J1 Transfusion of Nonautologous Serum Albumin into Peripheral Vein, Percutaneous Approach (ICD-10-PCS; principal; 2022-11-25)
DX: I13.0 Hypertensive heart and chronic kidney disease with heart failure and stage 1 through stage 4 chronic kidney disease, or unspecified chronic kidney disease (principal); I50.33 Acute on chronic diastolic (congestive) heart failure; E87.1 Hypo-osmolality and hyponatremia; N18.30 Chronic kidney disease, stage 3 unspecified; I25.10 Atherosclerotic heart disease of native coronary artery without angina pectoris; E11.22 Type 2 diabetes mellitus with diabetic chronic kidney disease; E11.51 Type 2 diabetes mellitus with diabetic peripheral angiopathy without gangrene; E89.2 Postprocedural hypoparathyroidism; I16.0 Hypertensive urgency; E78.2 Mixed hyperlipidemia; E87.6 Hypokalemia; D63.1 Anemia in chronic kidney disease; E11.21 Type 2 diabetes mellitus with diabetic nephropathy; D50.9 Iron deficiency anemia, unspecified; Z89.412 Acquired absence of left great toe; Z90.49 Acquired absence of other specified parts of digestive tract; Z90.710 Acquired absence of both cervix and uterus; Z79.899 Other long term (current) drug therapy; Z88.8 Allergy status to other drugs, medicaments and biological substances; Z99.2 Dependence on renal dialysis; Z79.4 Long term (current) use of insulin; Z88.6 Allergy status to analgesic agent; Z89.411 Acquired absence of right great toe; Z98.890 Other specified postprocedural states
CPT/HCPCS: 36415; 36416; 71045; 80048; 80053; 80306; 81001; 82553; 82570; 83880; 84156; 84484; 85025; 93005; 96372; 96374; 96375; 96376; G0378; J0360; J1650; J1815; J1940; J2272; P9047; Q0169

== ENCOUNTER 2022-12-12 08:23 | Emergency (ER) | payer OTHER ==
[2022-12-12] MEDS ORDERED: Morphine 4 MG/ML VIAL ONE (08:53)
[2022-12-12] MEDS ORDERED: Ondansetron PF 4 MG/2 ML Vial ONE (08:54)
[2022-12-12 09:35] LABS: Bilirubin Neg (Negative); Blood, Urine 10 (Negative); Glucose, Urine (Dipstick) >=1000 mg/dL (Negative); Ketone, Urine Negative (Negative); Leukocyte 25 (Negative); Nitrite Negative (Negative); Protein, Urine (Dipstick) 30 mg/dl (Neg-Trace); Urobilinogen Normal mg/dL (Less than 2)
[2022-12-12 09:43] LABS: Clarity Hazy (Clear)
[2022-12-12 09:48] LABS: #Eosinphils 0.1 10x3/uL (0.0-0.5); #Monocytes 0.6 10x3/uL (0.0-1.1); #Neutrophils 2.8 10x3/uL (1.5-8.4); %Basophils 0.4 % (0.0-2.0); %Eosinophils 1.4 % (0.0-6.0); %Lymphocytes 31.8 % (18.0-47.0); %Monocytes 10.7 % (0.0-10.0); %Neutrophils 55.3 % (40.0-75.0); Hemoglobin 13.6 g/dL (12.0-15.5); Mean Corpuscular HGB CONC 30.8 g/dL (32.0-36.0); Mean Corpuscular Hemoglobin 22.3 pg (27.0-33.0); Mean Corpuscular Volume 72.3 fl (81.6-98.3); Mean Platelet Volume 11.2 fl (7.4-10.4); Platelet Count 188 10x3/uL (150-450); RBC Distribution Width 17.2 % (11.5-14.5); White Blood Cell (WBC) Count 5.1 10x3/uL (3.5-10.5)
[2022-12-12 09:50] LABS: ALT (SGPT) 8 U/L (8-55); AST (SGOT) 23 U/L (5-34); Albumin 3.4 g/dL (3.5-5.0); Alkaline Phosphatase 183 U/L (40-110); Anion Gap 16 mmol/L (10-20); BUN (Urea Nitrogen) 24 mg/dL (7.0-18.7); Calc. Creatinine Clearance 0 mL/min (70-130); Calcium 9.7 mg/dL (7.8-10.44); Carbon Dioxide 26 mmol/L (22-29); Chloride 92 mmol/L (98-107); Estimated GFR 29; Globulin 5.6 g/dL (2.4-3.5); Lipase 63 U/L (8-78); Potassium 3.6 mmol/L (3.5-5.1); Sodium 130 mmol/L (136-145)
[2022-12-12 09:56] LABS: Glucose 489 mg/dL (70-105)
[2022-12-12 10:00] LABS: Bacteria/HPF Rare-Few HPF (None Seen); RBC/HPF 0-3 HPF (0-3); Squamous Epithelial 0-3 HPF (0-3); WBC/HPF 0-3 HPF (0-3)
[2022-12-12] MEDS ORDERED: Sodium Chloride 0.9% 500 ML ONE (10:15)
[2022-12-12] MEDS ORDERED: Iopamidol 300 61% 100 ML VIAL FS ONE (11:21)
== END 2022-12-12 10:52 | disposition home or self-care (01) ==
LOC: CSHERS 08:23
DX: E11.65 Type 2 diabetes mellitus with hyperglycemia (principal); R10.31 Right lower quadrant pain; E11.22 Type 2 diabetes mellitus with diabetic chronic kidney disease; N18.30 Chronic kidney disease, stage 3 unspecified; I12.9 Hypertensive chronic kidney disease with stage 1 through stage 4 chronic kidney disease, or unspecified chronic kidney disease
CPT/HCPCS: 36415; 74177; 80053; 81003; 81015; 83690; 85025; 96374; J2270; J2405; J7030; Q9967

== ENCOUNTER 2023-07-24 17:17 | Emergency (ER) | payer OTHER | END 2023-07-24 18:19 | disposition home or self-care (01) | LOC: CSHERS 17:17 | DX: L30.4 Erythema intertrigo (principal); B37.9 Candidiasis, unspecified; I25.10 Atherosclerotic heart disease of native coronary artery without angina pectoris; I12.9 Hypertensive chronic kidney disease with stage 1 through stage 4 chronic kidney disease, or unspecified chronic kidney disease; E11.22 Type 2 diabetes mellitus with diabetic chronic kidney disease; N18.9 Chronic kidney disease, unspecified; Z87.891 Personal history of nicotine dependence | CPT/HCPCS: 99282 ==

== ENCOUNTER 2023-10-03 09:10 | Outpatient (CLI) | payer OTHER | END 2023-10-03 09:11 | disposition home or self-care (01) | LOC: CSHWCC 09:10 | PROVIDERS: ATTEND Nurse Practitioner Family | DX: E11.621 Type 2 diabetes mellitus with foot ulcer (principal); L97.415 Non-pressure chronic ulcer of right heel and midfoot with muscle involvement without evidence of necrosis; I25.10 Atherosclerotic heart disease of native coronary artery without angina pectoris | CPT/HCPCS: 11042; 99213; G0463 ==

== ENCOUNTER 2023-10-07 11:25 | Outpatient (CLI) | payer OTHER | END 2023-10-07 11:26 | disposition home or self-care (01) | LOC: CSHWCC 11:25 | PROVIDERS: ATTEND Nurse Practitioner Family | DX: E11.621 Type 2 diabetes mellitus with foot ulcer (principal); I25.10 Atherosclerotic heart disease of native coronary artery without angina pectoris; L97.415 Non-pressure chronic ulcer of right heel and midfoot with muscle involvement without evidence of necrosis | CPT/HCPCS: 11042 ==

== ENCOUNTER 2023-10-14 13:15 | Outpatient (CLI) | payer OTHER | END 2023-10-14 13:16 | disposition home or self-care (01) | LOC: CSHWCC 13:15 | PROVIDERS: ATTEND Nurse Practitioner Family | DX: E11.621 Type 2 diabetes mellitus with foot ulcer (principal); I25.10 Atherosclerotic heart disease of native coronary artery without angina pectoris; L97.415 Non-pressure chronic ulcer of right heel and midfoot with muscle involvement without evidence of necrosis | CPT/HCPCS: 11042 ==

== ENCOUNTER 2024-01-24 11:49 | Outpatient (CLI) | payer OTHER | END 2024-01-24 11:50 | disposition home or self-care (01) | LOC: CSHWCC 11:49 | PROVIDERS: ATTEND Nurse Practitioner Family | DX: E11.621 Type 2 diabetes mellitus with foot ulcer (principal); L97.415 Non-pressure chronic ulcer of right heel and midfoot with muscle involvement without evidence of necrosis; E11.51 Type 2 diabetes mellitus with diabetic peripheral angiopathy without gangrene; I25.10 Atherosclerotic heart disease of native coronary artery without angina pectoris; I50.22 Chronic systolic (congestive) heart failure | CPT/HCPCS: 99214; G0463 ==

== ENCOUNTER 2024-02-04 13:38 | Outpatient (CLI) | payer OTHER | END 2024-02-04 13:39 | disposition home or self-care (01) | LOC: CSHWCC 13:38 | PROVIDERS: ATTEND Nurse Practitioner Family | DX: E11.621 Type 2 diabetes mellitus with foot ulcer (principal); L97.415 Non-pressure chronic ulcer of right heel and midfoot with muscle involvement without evidence of necrosis; I25.10 Atherosclerotic heart disease of native coronary artery without angina pectoris; I50.22 Chronic systolic (congestive) heart failure; I73.9 Peripheral vascular disease, unspecified | CPT/HCPCS: 11042 ==

== ENCOUNTER 2024-02-11 14:59 | Outpatient (CLI) | payer OTHER | END 2024-02-11 15:00 | disposition home or self-care (01) | LOC: CSHWCC 14:59 | PROVIDERS: ATTEND Nurse Practitioner Family | DX: E11.621 Type 2 diabetes mellitus with foot ulcer (principal); L97.415 Non-pressure chronic ulcer of right heel and midfoot with muscle involvement without evidence of necrosis; I25.10 Atherosclerotic heart disease of native coronary artery without angina pectoris; I50.22 Chronic systolic (congestive) heart failure; E11.59 Type 2 diabetes mellitus with other circulatory complications | CPT/HCPCS: 99213; G0463 ==

== ENCOUNTER 2024-02-18 13:34 | Outpatient (CLI) | payer OTHER | END 2024-02-18 13:35 | disposition home or self-care (01) | LOC: CSHWCC 13:34 | PROVIDERS: ATTEND Nurse Practitioner Family | DX: E11.621 Type 2 diabetes mellitus with foot ulcer (principal); L97.415 Non-pressure chronic ulcer of right heel and midfoot with muscle involvement without evidence of necrosis; I25.10 Atherosclerotic heart disease of native coronary artery without angina pectoris; I50.22 Chronic systolic (congestive) heart failure; E11.59 Type 2 diabetes mellitus with other circulatory complications ==

== ENCOUNTER 2024-04-07 11:00 | Outpatient (CLI) | payer OTHER | END 2024-04-07 11:01 | disposition home or self-care (01) | LOC: CSHWCC 11:00 | PROVIDERS: ATTEND Nurse Practitioner Family | DX: E11.621 Type 2 diabetes mellitus with foot ulcer (principal); L97.415 Non-pressure chronic ulcer of right heel and midfoot with muscle involvement without evidence of necrosis; I25.10 Atherosclerotic heart disease of native coronary artery without angina pectoris; I73.9 Peripheral vascular disease, unspecified; I50.22 Chronic systolic (congestive) heart failure; E11.65 Type 2 diabetes mellitus with hyperglycemia | CPT/HCPCS: 11042; 36416 ==

== ENCOUNTER 2024-05-11 14:13 | Outpatient (CLI) | payer OTHER | END 2024-05-11 14:14 | disposition home or self-care (01) | LOC: CSHWCC 14:13 | PROVIDERS: ATTEND Nurse Practitioner Family | DX: E11.621 Type 2 diabetes mellitus with foot ulcer (principal); L97.415 Non-pressure chronic ulcer of right heel and midfoot with muscle involvement without evidence of necrosis; E11.51 Type 2 diabetes mellitus with diabetic peripheral angiopathy without gangrene; I25.10 Atherosclerotic heart disease of native coronary artery without angina pectoris; E11.65 Type 2 diabetes mellitus with hyperglycemia; I50.22 Chronic systolic (congestive) heart failure | CPT/HCPCS: 11042 ==

== ENCOUNTER 2024-05-18 08:51 | Outpatient (CLI) | payer OTHER | END 2024-05-18 08:52 | disposition home or self-care (01) | LOC: CSHWCC 08:51 | PROVIDERS: ATTEND Nurse Practitioner Family | DX: E11.621 Type 2 diabetes mellitus with foot ulcer (principal); L97.415 Non-pressure chronic ulcer of right heel and midfoot with muscle involvement without evidence of necrosis; E11.51 Type 2 diabetes mellitus with diabetic peripheral angiopathy without gangrene; E11.65 Type 2 diabetes mellitus with hyperglycemia; I25.10 Atherosclerotic heart disease of native coronary artery without angina pectoris; I50.22 Chronic systolic (congestive) heart failure | CPT/HCPCS: 11042 ==

== ENCOUNTER 2024-05-29 10:24 | Outpatient (CLI) | payer OTHER | END 2024-05-29 10:25 | disposition home or self-care (01) | LOC: CSHWCC 10:24 | PROVIDERS: ATTEND Nurse Practitioner Family | DX: E11.621 Type 2 diabetes mellitus with foot ulcer (principal); L97.415 Non-pressure chronic ulcer of right heel and midfoot with muscle involvement without evidence of necrosis; I25.10 Atherosclerotic heart disease of native coronary artery without angina pectoris; E11.51 Type 2 diabetes mellitus with diabetic peripheral angiopathy without gangrene; I73.9 Peripheral vascular disease, unspecified; I50.22 Chronic systolic (congestive) heart failure; E11.65 Type 2 diabetes mellitus with hyperglycemia | CPT/HCPCS: 11042 ==

== ENCOUNTER 2024-06-04 15:15 | Outpatient (CLI) | payer OTHER | END 2024-06-04 15:16 | disposition home or self-care (01) | LOC: CSHWCC 15:15 | PROVIDERS: ATTEND Nurse Practitioner Family | DX: E11.621 Type 2 diabetes mellitus with foot ulcer (principal); L97.415 Non-pressure chronic ulcer of right heel and midfoot with muscle involvement without evidence of necrosis; E11.51 Type 2 diabetes mellitus with diabetic peripheral angiopathy without gangrene; E11.65 Type 2 diabetes mellitus with hyperglycemia; I25.10 Atherosclerotic heart disease of native coronary artery without angina pectoris; I50.22 Chronic systolic (congestive) heart failure | CPT/HCPCS: 11042 ==

== ENCOUNTER 2024-06-15 13:46 | Outpatient (CLI) | payer OTHER | END 2024-06-15 13:47 | disposition home or self-care (01) | LOC: CSHWCC 13:46 | PROVIDERS: ATTEND Nurse Practitioner Family | DX: E11.621 Type 2 diabetes mellitus with foot ulcer (principal); L97.415 Non-pressure chronic ulcer of right heel and midfoot with muscle involvement without evidence of necrosis; I25.10 Atherosclerotic heart disease of native coronary artery without angina pectoris; I50.22 Chronic systolic (congestive) heart failure; E11.65 Type 2 diabetes mellitus with hyperglycemia; E11.59 Type 2 diabetes mellitus with other circulatory complications | CPT/HCPCS: 11042; 99212; G0463 ==

== ENCOUNTER 2024-06-22 11:34 | Outpatient (CLI) | payer OTHER | END 2024-06-22 11:35 | disposition home or self-care (01) | LOC: CSHWCC 11:34 | PROVIDERS: ATTEND Nurse Practitioner Family | DX: E11.621 Type 2 diabetes mellitus with foot ulcer (principal); L97.415 Non-pressure chronic ulcer of right heel and midfoot with muscle involvement without evidence of necrosis; I25.10 Atherosclerotic heart disease of native coronary artery without angina pectoris; E11.51 Type 2 diabetes mellitus with diabetic peripheral angiopathy without gangrene; I73.9 Peripheral vascular disease, unspecified; E11.65 Type 2 diabetes mellitus with hyperglycemia; I50.22 Chronic systolic (congestive) heart failure | CPT/HCPCS: 11042 ==

== ENCOUNTER 2024-06-29 11:29 | Outpatient (CLI) | payer OTHER | END 2024-06-29 11:30 | disposition home or self-care (01) | LOC: CSHWCC 11:29 | PROVIDERS: ATTEND Nurse Practitioner Family | DX: E11.621 Type 2 diabetes mellitus with foot ulcer (principal); L97.415 Non-pressure chronic ulcer of right heel and midfoot with muscle involvement without evidence of necrosis; I25.10 Atherosclerotic heart disease of native coronary artery without angina pectoris; E11.65 Type 2 diabetes mellitus with hyperglycemia; I50.22 Chronic systolic (congestive) heart failure; E11.59 Type 2 diabetes mellitus with other circulatory complications | CPT/HCPCS: 11042 ==

== ENCOUNTER 2024-07-30 13:31 | Outpatient (CLI) | payer OTHER | END 2024-07-30 13:32 | disposition home or self-care (01) | LOC: CSHWCC 13:31 | PROVIDERS: ATTEND Nurse Practitioner Family | DX: E11.621 Type 2 diabetes mellitus with foot ulcer (principal); L97.415 Non-pressure chronic ulcer of right heel and midfoot with muscle involvement without evidence of necrosis; I25.10 Atherosclerotic heart disease of native coronary artery without angina pectoris; E11.65 Type 2 diabetes mellitus with hyperglycemia; I50.22 Chronic systolic (congestive) heart failure; E11.59 Type 2 diabetes mellitus with other circulatory complications | CPT/HCPCS: 11042 ==

== ENCOUNTER 2024-08-06 13:38 | Outpatient (CLI) | payer OTHER | END 2024-08-06 13:39 | disposition home or self-care (01) | LOC: CSHWCC 13:38 | PROVIDERS: ATTEND Nurse Practitioner Family | DX: E11.621 Type 2 diabetes mellitus with foot ulcer (principal); L97.415 Non-pressure chronic ulcer of right heel and midfoot with muscle involvement without evidence of necrosis; I50.22 Chronic systolic (congestive) heart failure; E11.65 Type 2 diabetes mellitus with hyperglycemia; E11.51 Type 2 diabetes mellitus with diabetic peripheral angiopathy without gangrene; I25.10 Atherosclerotic heart disease of native coronary artery without angina pectoris | CPT/HCPCS: 11042 ==

== ENCOUNTER 2024-09-02 10:47 | Outpatient (CLI) | payer OTHER | END 2024-09-02 10:48 | disposition home or self-care (01) | LOC: CSHWCC 10:47 | PROVIDERS: ATTEND Nurse Practitioner Family | DX: E11.621 Type 2 diabetes mellitus with foot ulcer (principal); L97.415 Non-pressure chronic ulcer of right heel and midfoot with muscle involvement without evidence of necrosis; E11.51 Type 2 diabetes mellitus with diabetic peripheral angiopathy without gangrene; E11.65 Type 2 diabetes mellitus with hyperglycemia; I50.22 Chronic systolic (congestive) heart failure; I25.10 Atherosclerotic heart disease of native coronary artery without angina pectoris | CPT/HCPCS: 11042; 99212; G0463 ==

== ENCOUNTER 2024-09-28 13:57 | Outpatient (CLI) | payer OTHER | END 2024-09-28 13:58 | disposition home or self-care (01) | LOC: CSHWCC 13:57 | PROVIDERS: ATTEND Nurse Practitioner Family | DX: E11.621 Type 2 diabetes mellitus with foot ulcer (principal); L97.415 Non-pressure chronic ulcer of right heel and midfoot with muscle involvement without evidence of necrosis; E11.51 Type 2 diabetes mellitus with diabetic peripheral angiopathy without gangrene; I25.10 Atherosclerotic heart disease of native coronary artery without angina pectoris; I50.22 Chronic systolic (congestive) heart failure; E11.65 Type 2 diabetes mellitus with hyperglycemia | CPT/HCPCS: 97597 ==